=== PATIENT | male | born 1945 | race Caucasian/White ===

== ENCOUNTER 2017-09-28 08:40 | Outpatient (CLI) | payer MEDICARE ==
[~2017-09-28 08:40] MED LIST: ISOVUE-370 76%-LOCM 1 ML ONE
== END 2017-09-28 08:41 | disposition home or self-care (01) ==
LOC: BICCT 08:40
PROVIDERS: ATTEND Urology
DX: R10.31 Right lower quadrant pain (principal); R97.20 Elevated prostate specific antigen [PSA]; Q63.9 Congenital malformation of kidney, unspecified; R93.422 Abnormal radiologic findings on diagnostic imaging of left kidney; Z87.440 Personal history of urinary (tract) infections; Z87.442 Personal history of urinary calculi
CPT/HCPCS: 36415; 74178; 80048; 81001; 84153; 87086

== ENCOUNTER 2018-01-18 13:58 | Outpatient (CLI) | payer MEDICARE ==
[~2018-01-18 13:58] MED LIST changes: +Gadobenate Dimeglumine 529 MG/1 ML (20ML VIAL) ONE; -ISOVUE-370 76%-LOCM 1 ML ONE
[2018-01-18 15:23] LABS: Estimated GFR-MDRD - POC Greater than 90
--- NOTE | 2018-01-18 19:21 | MRI ---
MRI PELVIS WITH AND WITHOUT CONTRAST: Date: 01/18/18 HISTORY: C61, prostate cancer. COMPARISON: CT abdomen and pelvis dated 09/28/17. TECHNIQUE: Multiplanar, multisequence MRI of the pelvis was performed prior to and after the intravenous adminis tration of contrast using prostate protocol. The exam was reviewed on an independent 3D workstation. FINDINGS: The prostate measures 4.6 x 3.7 x 4.6 cm, for a volume of 37.89 mL. Peripheral Zone: There are no abnormalities on the DWI or the ADC in the peripheral zone. This may be due to the amoun t of gas within the rectum. Transitional Zone: There are circumscribed hypointense heterogeneous calcified nodules. No focal noncircumscribed homoge neously T2 hypointense foci. Prostatic Capsule: Intact. Neurovascular Bundles: Intact. Lymph Nodes: No adenopathy. Bones: On the T1-weighted sequence, there are no areas of loss of normal marrow signal to suggest osseous me tastatic disease. IMPRESSION: 1. PI-RADS Category 2: Low (clinically significant prostate cancer is unlikely to be present). Alth ough on the recent pathology report, there is prostate cancer occupying a majority of the prostate, b ut this is not apparent on this exam. 2. Prostatic volume of 37.89 mL. 3. No evidence of extraprostatic extension or neurovascular bundle invasion, lymph node involvement, or osseous metastatic disease. POS: JACOB
== END 2018-01-18 13:59 | disposition home or self-care (01) ==
LOC: TBSIIMAG 13:58
PROVIDERS: ATTEND Urology
DX: C61 Malignant neoplasm of prostate (principal)
CPT/HCPCS: 72197; 82565; A9579

== ENCOUNTER 2018-08-11 09:13 | Outpatient (CLI) | payer MEDICARE ==
--- NOTE | 2018-08-11 09:33 | ULT ---
ULTRASOUND ABDOMEN COMPLETE: DATE: 08/11/2018 HISTORY: Generalized abdominal pain FINDINGS: Gallbladder: Normal wall thickness. No evidence of pericholecystic fluid, gallstones, or sludge. Liver: Diffusely increased echogenicity, consistent with fatty liver. Common duct caliber: 4 mm. Bilateral kidneys: No hydronephrosis. Pancreas: Nonspecific sonographic appearance. Abdominal aorta: No aneurysm Inferior vena cava: Unremarkable where visualized. Spleen: No splenomegaly IMPRESSION: 1) Hepatic steatosis. 2) no other pathology identified.
--- NOTE | 2018-08-11 09:36 | ULT ---
Ultrasound urinary bladder: DATE: 08/11/2018 HISTORY: 72-year-old male with generalized abdominal pain. History of prior urolithiasis. FINDINGS: Urinary bladder has normal, thin powers. Bilateral ureteral jets are demonstrated. No intraluminal mas s. Bladder volume is 140 mL at time of scan. Post void bladder volume is 0. Ultrasound images of the left groin demonstrate no definite hernia, but CT of abdomen and pelvis woul d be much more sensitive for the detection of inguinal hernia than ultrasound. IMPRESSION: Negative
== END 2018-08-11 09:14 | disposition home or self-care (01) ==
LOC: BICULT 09:13
PROVIDERS: ATTEND Internal Medicine Geriatric Medicine
DX: R10.84 Generalized abdominal pain (principal); K76.0 Fatty (change of) liver, not elsewhere classified
CPT/HCPCS: 76700; 76856